=== PATIENT | male | born 1990 | race African-American/Black ===

== ENCOUNTER 2024-02-20 21:11 | Emergency (ER) | payer MEDICARE ==
[~2024-02-20] VITALS: Ht 190.5 cm; Wt 100.0 kg
[2024-02-20 21:39] VITALS: O2SAT 100
[2024-02-20 21:40] VITALS: BP 149/95; PULSE 95; RESP 16; TEMP 98.2; O2SAT 100
== END 2024-02-20 22:44 | disposition left against medical advice (07) ==
LOC: ER 21:11
DX: R07.9 Chest pain, unspecified (principal); Z53.21 Procedure and treatment not carried out due to patient leaving prior to being seen by health care provider

== ENCOUNTER 2024-08-27 19:15 | Emergency (ER) | payer MEDICARE, OTHER ==
[~2024-08-27] VITALS: Ht 185.4 cm; Wt 63.0 kg
[2024-08-27 19:21] VITALS: O2SAT 91
[2024-08-27 20:05] LABS: BASOPHILS % 0.9 % (0.0-2.0); EOSINOPHILS % 1.4 % (0.0-5.0); HEMATOCRIT. 39.8 % (42.0-52.0); HEMOGLOBIN. 13.5 g/dL (14.0-18.0); LYMPHOCYTES % 38.2 % (20.0-50.0); MEAN CORPUSCULAR HEMOGLOBIN 33.4 pg (28.0-32.0); MEAN CORPUSCULAR VOLUME 98.5 fL (80.0-94.0); MEAN PLATELET VOLUME 9.7 fl (7.4-10.4); MONOCYTES % 6.5 % (2.0-8.0); PLATELET 210 x1000/uL (130-400); RED BLOOD CELL COUNT 4.05 mill/uL (4.7-6.1); RED CELL DISTRIBUTION WIDTH 12.7 % (11.6-14.6); WHITE BLOOD COUNT 10.7 x1000/uL (4.5-11.0)
[2024-08-27 20:13] LABS: CHLORIDE 104 mEq/L (98-107); POTASSIUM 3.6 mEq/L (3.5-5.1); SODIUM 140 mEq/L (136-145)
[2024-08-27 20:14] LABS: CARBON DIOXIDE 26 mEq/L (21-32)
[2024-08-27 20:15] LABS: CALCIUM 9.4 mg/dL (8.7-10.4)
[2024-08-27 20:19] LABS: GLUCOSE 198 mg/dL (70-105); UREA NITROGEN BLOOD 15 mg/dL (9-23)
[2024-08-27 20:22] LABS: TROPONIN I HIGH SENSITIVITY < 4 ng/L (3.0-53)
[2024-08-27 21:56] LABS: TROPONIN I HIGH SENSITIVITY < 4 ng/L (3.0-53)
[2024-08-27 23:02] VITALS: BP 135/89; PULSE 79; RESP 18; TEMP 36.6; O2SAT 99
== END 2024-08-27 23:06 | disposition home or self-care (01) ==
LOC: ER 19:15
DX: R07.89 Other chest pain (principal); I10 Essential (primary) hypertension; Z87.891 Personal history of nicotine dependence
CPT/HCPCS: 36415; 71045; 80048; 84484; 85025; 85379; 93005; 99285